=== PATIENT | male | born 1945 | race Caucasian/White ===

== ENCOUNTER → 2017-03-28 | Outpatient (CLI) | payer OTHER ==
[~2017-03-28] MED LIST: ASPIRIN EC81 M1 PO; ATORVASTATIN CA10 MG PO; DIAZEPAM PO; HYDREA500 MG PO; LISINOPRIL20 MG PO; LORTAB 5-325 M1 EACH PO; METFORMIN HCL500 M1 PO; NO MEDICATIONS; TERBINAFINE (L250 MG PO
--- NOTE | ~2017-03-28 | US128 ---
[id number] [address] [address] [id number] O MR#: [id number] Acc #: [id number] NAME: SCHUYLER NASH : 1945 SEX: M STUDY DATE/TIME: 03/28/2017 8:50 UNIT: [facility]US ROOM: STUDY DESCRIPTION: Thyroid Attending Physician: Amor Palma M.D. Referring Physician: Amor Palma M.D. Ordering Physician: Amor Palma M.D. Primary Care Physician: Amor Palma M.D. MEDICAL IMAGING REPORT This report is preliminary unless electronic signature is present. EXAMINATION Thyroid ultrasound DATE 03/28/2017 HISTORY Follow up thyroid nodules. COMPARISON Thyroid ultrasound 09/24/2016. FINDINGS The right thyroid lobe measures 1.6 x 1.5 x 3.9 cm. The isthmus measures 6.6 mm. The left thyroid lobe measures 1.2 x 1.7 x 3.1 cm. Previously described hypoechoic nodule lying along the anterior margin of the right mid thyroid lobe thought to actually correspond to a prominent blood vessel, and it is unchanged. A tiny echogenic nonshadowing nodule in the posterior right [id number] thyroid pole measures 3 mm, unchanged. A questionable hypoechoic nodule versus altered parenchymal architecture within the right lower thyroid pole measures 7.6 x 5.8 x 5.6 mm, and can be faintly seen on the transverse image of the right lower thyroid pole on the previous study where it measures 6.6 x 4.9 mm, but not well visualized on the submitted longitudinal image. It is not thought to be significantly changed. There is a hypoechoic region in the anterior left mid thyroid lobe that the technologist has measured on today's examination, which is favored to represent altered parenchymal architecture or hypoechogenicity rather than a true nodule. No suspicious left thyroid nodules are identified. IMPRESSION 1. Small, subcentimeter nodules within the right thyroid lobe are unchanged. Another hypoechoic nodule previously described is actually thought to conform to a blood vessel coursing over the right thyroid lobe surface. No definite new thyroid nodules are identified. Dictated by... Shanice Dupont M.D. THIS IS AN ELECTRONICALLY VERIFIED REPORT Shanice Dupont M.D. at 03/31/2017 8:52 AM LALI/umer TD: 03/28/2017 20:32 JOB #: [id number] MEDICAL IMAGING REPORT Page 1 of 1
== END | disposition home or self-care (01) ==
LOC: SGUS 08:57
DX: E04.1 Nontoxic single thyroid nodule (principal); E04.2 Nontoxic multinodular goiter
CPT/HCPCS: 76536